=== PATIENT | female | born 1950 | race Caucasian/White ===

== ENCOUNTER 2017-09-29 20:00 | Emergency (ER) | payer MEDICAID, OTHER ==
[~2017-09-29] VITALS: Ht 154.9 cm; Wt 59.0 kg
[~2017-09-29 20:00] MED LIST: ALBUTEROL SULF8.5 GM INH; IBUPROFEN600 MG ORAL; NKM; VALIUM5 MG PO; VICODIN 5-5001 EACH PO; ZITHROMAX250 MG ORAL
[2017-09-29 20:15] VITALS: BP 146/87
[2017-09-29 20:31] VITALS: BP 146/87
--- NOTE | 2017-09-29 22:02 | Emergency Room Report ---
History of Present Illness General Chief Complaint: Eye Problems Source: Patient Present Illness HPI 66-year-old female presents to ED for evaluation. Patient states she is experiencing floaters in her left eye which started this morning. Denies any photophobia or blurry vision. Denies any eye pain. States that they come and go. States she had this many years ago in the right eye and they resolved on their own. Denies neck stiffness. Denies any headache. No other aggravating or relieving factors. Denies any other associated symptoms Allergies: Coded Allergies: CODEINE (Verified Allergy, DIZZINESS, 12/14/12) Patient History Past Medical History: asthma, ulcer Past Surgical History: none Pertinent Family History: none Social History: Denies: smoking, alcohol use, drug use Now: No Immunizations: UTD Reviewed Nursing Documentation: PMH: Agreed, PSxH: Agreed Nursing Documentation-PMH Hx Cardiac Problems: Yes Hx Asthma: Yes Hx Gastrointestinal Problems: Yes - ULCER Review of Systems All Other Systems: negative except mentioned in HPI Physical Exam Vital Signs Date Time Temp Pulse Resp B/P (MAP) Pulse Ox O2 Delivery O2 Flow Rate FiO2 09/29/17 20:07 98.2 68 16 146/87 95 Room Air 98.2 Sp02 EP Interpretation: reviewed, normal General Appearance: no apparent distress, alert, GCS 15, non-toxic Head: normocephalic Eyes: bilateral eye normal inspection, bilateral eye PERRL, bilateral eye EOMI , bilateral eye visual acuity ENT: hearing grossly normal, normal pharynx, no angioedema, normal voice Neck: full range of motion, supple/symm/no masses Respiratory: normal inspection Cardiovascular #1: normal inspection Gastrointestinal: normal inspection Rectal: deferred Genitourinary: no CVA tenderness Musculoskeletal: normal inspection Neurologic: alert, oriented x3, responsive, motor strength/tone normal, sensory intact, speech normal Psychiatric: normal inspection Skin: normal inspection Lymphatic: normal inspection Medical Decision Making Diagnostic Impression: Primary Impression: Vitreous floaters of left eye ER Course Hospital Course 66-year-old female presents ED with floaters in the left eye. No changes in visual acuity Differential diagnoses include: conjunctivitis, traumatic iritis, foreign body, corneal abrasion Clinical course Patient placed on stretcher. After initial history , physical exam reveals a elderly female in no acute distress. Visual acuity unchanged in both eyes. Pupils equally reactive to light. No photophobia. Given no pain and no change in visual acuity I see no reason for acute intervention at this time. Suspicion for acute process such as retinal detachment is low given that visual acuity is unchanged Discussed findings with patient. Given referral for ophthalmology Diagnosis - vitreous floaters in eye Stable and discharged to home. Followup with optho. Return to ED if symptoms recur or worsen Last Vital Signs Date Time Temp Pulse Resp B/P (MAP) Pulse Ox O2 Delivery O2 Flow Rate FiO2 09/29/17 20:31 98.2 16 146/87 95 Room Air 98.2 09/29/17 20:15 77 Status: improved Disposition: HOME, SELF-CARE Condition: Stable Referrals: Hill Alvares MD, Maziar M.D. SAVAR, AARON SAVAR, LOU[place] M.D. [facility],REFERRING (PCP) Patient Instructions: Eye Floaters SANTOSH CONLEY M.D. Sep 29, 2017 22:01
== END 2017-09-29 20:32 | disposition home or self-care (01) ==
LOC: EMR 20:30
DX: H43.392 Other vitreous opacities, left eye (principal); J45.909 Unspecified asthma, uncomplicated; Z88.5 Allergy status to narcotic agent
CPT/HCPCS: 99282